=== PATIENT | male | born 1960 | race Two or more races ===

== ENCOUNTER 2018-12-08 20:04 | Emergency (ER) | payer OTHER ==
[2018-12-08 20:20] VITALS: BP 128/90; TEMP 97.9; BMI 31.4
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
[2018-12-08] MEDS ORDERED: SODIUM CHLORIDE 1,000 ML IV STA (21:00)
== END 2018-12-08 23:52 ==
LOC: ED 20:04
DX: F10.129 Alcohol abuse with intoxication, unspecified (principal)
CPT/HCPCS: 36415; 80053; 80307; 81001; 84484; 85025; 87086; 93005; 93010; 96360; 96361; 99283